=== PATIENT | female | born 1940 | race Caucasian/White ===

== ENCOUNTER 2018-01-06 09:21 | Emergency (ER) | payer MEDICARE ==
[~2018-01-06] VITALS: Ht 162.6 cm; Wt 81.0 kg
[2018-01-06 09:24] VITALS: BP 149/86
[2018-01-06 10:10] LABS: BASOPHILS # (AUTO) 0.02 x10^3/uL (0-0.1); BASOPHILS % (AUTO) 1 % (0-1); EOSINOPHILS % (AUTO) 0 % (1-7); LYMPHOCYTES # (AUTO) 0.55 x10^3/uL (1-3.4); LYMPHOCYTES % (AUTO) 16 % (22-44); MD NO; MEAN CORPUSCULAR HEMOGLOBIN 32.2 pg (27.0-34.8); MEAN CORPUSCULAR HGB CONC 34.2 g/dL (32.4-35.8); MEAN CORPUSCULAR VOLUME 94.4 fL (80-100); MEAN PLATELET VOLUME 8.2 fL (7.4-10.4); MONOCYTES # (AUTO) 0.51 x10^3/uL (0.2-0.8); MONOCYTES % (AUTO) 15 % (2-9); NEUTROPHILS # (AUTO) 2.37 x10^3/uL (1.8-6.8); NEUTROPHILS % (AUTO) 68 % (42-75); PLATELET COUNT 229 x10^3/uL (130-400); RED CELL DISTRIBUTION WIDTH 12.5 % (9.6-15.2)
[2018-01-06 10:12] LABS: ALANINE AMINOTRANSFERASE 23 U/L (12-78); ALBUMIN 3.6 g/dL (3.4-5.0); ANION GAP 11 mmol/L (5-15); CALCIUM 9.3 mg/dL (8.5-10.1); CHLORIDE 94 mmol/L (98-107); CREATININE 0.66 mg/dL (0.55-1.02)
[2018-01-06 10:14] LABS: ALKALINE PHOSPHATASE 73 U/L (45-117); BILIRUBIN,TOTAL 0.3 mg/dL (0.2-1.0); TOTAL PROTEIN 7.1 g/dL (6.4-8.2)
[2018-01-06 11:08] LABS: MICROSCOPIC AUTO
[2018-01-06 11:09] LABS: CULTURE INDICATED? YES
[2018-01-06] MEDS ORDERED: SODIUM CHLORIDE 0.9% 1,000ML IVBOLUS ONE (11:30)
== END 2018-01-06 13:32 | disposition home or self-care (01) ==
LOC: ED 11:46
DX: R05 Cough (principal); E87.1 Hypo-osmolality and hyponatremia; R19.7 Diarrhea, unspecified; R11.2 Nausea with vomiting, unspecified; E78.00 Pure hypercholesterolemia, unspecified
CPT/HCPCS: 36415; 74022; 80053; 81001; 85025; 87086; 87147; 99285; J7030

== ENCOUNTER 2020-08-29 05:04 | Emergency (ER) | payer MEDICARE, OTHER ==
[~2020-08-29] VITALS: Ht 162.6 cm; Wt 65.0 kg
--- NOTE | 2020-08-29 05:10 | NUR ---
PT FOUND AT HOME IN BED, AND ON EMS ARRIVAL, PT WAS UNRESPONSIVE, WITH INTACT AIRWAY AND STIFF ARMS UP, IF STILL HAVING A SEIZURE. NO HX OF SAME. FSBS 110. NO HX OF SEIZURE, MEDICATIONS, ILLICTS/ETOH ETC
--- NOTE | 2020-08-29 05:11 | NUR ---
straight cath obtained by sharlene cook
[2020-08-29] MEDS ORDERED: SODIUM CHLORIDE FLUSH 10ML SYR IVF ONE (05:30)
[2020-08-29] MEDS ORDERED: SODIUM CHLORIDE 0.9% 1,000ML IVBOLUS ONE (05:30)
--- NOTE | 2020-08-29 05:35 | NUR ---
to ct scan
[2020-08-29 05:36] LABS: BASOPHILS % (AUTO) 1 % (0-1); EOSINOPHILS % (AUTO) 2 % (1-7); LYMPHOCYTES % (AUTO) 28 % (22-44); MEAN CORPUSCULAR HEMOGLOBIN 31.5 pg (27.0-34.8); MEAN CORPUSCULAR HGB CONC 33.6 g/dL (32.4-35.8); MEAN PLATELET VOLUME 7.8 fL (7.4-10.4); MONOCYTES % (AUTO) 16 % (2-9); NEUTROPHILS % (AUTO) 53 % (42-75); PLATELET COUNT 294 x10^3/uL (130-400); RED BLOOD COUNT 4.19 x10^6/uL (3.82-5.3); RED CELL DISTRIBUTION WIDTH 13.6 % (9.6-15.2)
[2020-08-29 05:39] LABS: MD NO
[2020-08-29 05:44] LABS: ALBUMIN 3.7 g/dL (3.4-5.0); ANION GAP 12 mmol/L (5-15); CALCIUM 9.4 mg/dL (8.5-10.1); CHLORIDE 104 mmol/L (98-107)
[2020-08-29 05:48] LABS: ALANINE AMINOTRANSFERASE 19 U/L (12-78); ALKALINE PHOSPHATASE 49 U/L (45-117); BILIRUBIN,TOTAL 0.4 mg/dL (0.2-1.0); CREATINE KINASE, TOTAL 74 U/L (26-192); CREATININE 0.75 mg/dL (0.55-1.02); TOTAL PROTEIN 6.7 g/dL (6.4-8.2)
[2020-08-29] MEDS ORDERED: ONDANSETRON 2MG/ML, 2ML ONE (05:49)
[2020-08-29] MEDS ORDERED: ONDANSETRON 2MG/ML, 2ML IVPush ONE (06:00)
--- NOTE | 2020-08-29 06:07 | NUR ---
erp asked about admin of loading dose of epileptic meds-erp considering
[2020-08-29 06:11] LABS: MICROSCOPIC NOT IND
[2020-08-29] MEDS ORDERED: ATOR-2 PO (06:55)
--- NOTE | 2020-08-29 06:56 | NUR ---
radiology called to expedite imaging reads
--- NOTE | 2020-08-29 07:02 | NUR ---
report called to frank beltre ([place]) for [place] [id number] report to Mima BELTRE ([place]) as we await [facility] transport
[2020-08-29 07:19] VITALS: BP 124/66
--- NOTE | 2020-08-29 07:20 | NUR ---
PT RESTING IN GURNEY COMFORTABLY. FAMILY AT BEDSIDE.
--- NOTE | 2020-08-29 08:53 | NUR ---
PT TRANSFERRED TO [facility] BY [facility]. REPORT GIVEN TO [facility].
== END 2020-08-29 08:56 | disposition short-term general hospital (02) ==
LOC: ED 05:42
DX: R41.82 Altered mental status, unspecified (principal); R00.0 Tachycardia, unspecified
CPT/HCPCS: 36415; 70450; 71045; 80053; 81003; 82550; 85025; 93005; 96361; 96374; 99285; J2405; J7030